=== PATIENT | female | born 1995 | race African-American/Black ===

== ENCOUNTER 2021-03-05 12:15 | Outpatient (REF) | payer OTHER, SELFPAY ==
[2021-03-05 13:11] LABS: COVID-19 Test Negative (Negative)
== END 2021-03-05 12:16 | disposition home or self-care (01) ==
LOC: HO.LAB 12:15
PROVIDERS: Visit Provider Internal Medicine
DX: Z20.822 Contact with and (suspected) exposure to COVID-19 (principal)
CPT/HCPCS: 36415; 87635; C9803

== ENCOUNTER 2025-10-17 08:35 | Outpatient (AMB) | payer OTHER, SELFPAY ==
--- NOTE | 2025-10-17 08:38 | A.OFFPC_ITS ---
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 Accompanied by: Self / Same As Patient Allergies No Known Allergies Allergy (Verified 10/17/25 08:41) Medication List - Last Reconciled 10/17/25 by Alpa Floyd MD multivitamin 1 tab PO DAILY Tobacco use date assessed: 10/17/25 Dental Screening Dental Screen Date: 10/17/25 Did you have a dental visit in the last 12 months?: No Did you have a dental problem in the last 6 months where you did not have access to dental care?: No HPI HPI Comments History of Present Illness Details The patient is a 30 year old female presenting to re-establish care and for physical Migraine: The patient reports a recent onset of severe and consistent migraines, which she locates at the top and sometimes back of her head. These headaches typically last for a couple of days and are only partially relieved by hmam-wai-vhncazk medications like ibuprofen or Tylenol. There is no specific pattern to their onset, and she experienced them on two separate days in the past week. Denies any snoring or apneas Asthma: The patient has a history of asthma, which has become more exacerbated lately, prompting her to carry her inhaler with her. She does not smoke cigarettes but does smoke marijuana recreationally, which may be a contributing factor. Anxiety and Depression: The patient reports using marijuana recreationally for anxiety and depression. Recent screening scores include a CAMERON-7 of 6, indicating mild anxiety, and a PHQ-9 of 5, indicating mild depression. She is currently seeking a therapist to address these issues. The patient's mother about three years ago, and she finds the holidays to be a difficult time. Carpal Tunnel Syndrome: The patient reports numbness in her right hand that began in the summer, around Deanne or May. The numbness affects all fingers, is accompanied by wrist pain, and has worsened this year. 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 Health Maintenance: The patient is re-establishing care, having not seen a provider since 2022. Her immunizations are up-to-date through her employer. She has not had a recent gynecological exam and her last eye exam was in 2022, after which she did not fill her prescription for glasses despite reporting worsening vision. She reports taking a multivitamin and oil of oregano. [facility] Medical History (Updated 10/17/25 @ 17:38 by Alpa Floyd MD) Routine adult health maintenance Thyromegaly Impaired fasting glucose Routine gynecological examination Migraine Depression Unspecified asthma Family History (Updated 10/17/25 @ 08:15 by Alpa Floyd MD) Other Congestive heart failure Coronary artery disease Diabetes mellitus Hypothyroidism Unspecified asthma Social History Housing: House Patient Tobacco Use Status: Never used Tobacco e-Cigarette/Vaping Use: Never Used service: No Current occupational status: employed Questionnaire PHQ-9 Over the last 2 weeks, how often have you been bothered by any of the following problems? 1. Little interest or pleasure in doing things: not at all 2. Feeling down, depressed, or hopeless: several days 3. Trouble falling or staying asleep, or sleeping too much: several days 4. Feeling tired or having little energy: several days 5. Poor appetite or overeating: several days 6. Feeling bad about yourself - or that you are a failure or have let yourself or your family down: not at all 7. Trouble concentrating on things, such as reading the newspaper or watching television: several days 8. Moving or speaking so slowly that other people could have noticed. Or the opposite - being so fidgety or restless that you have been moving around a lot more than usual: not at all 9. Thoughts that you would be better off or of hurting yourself in some way: not at all Total score: 5 Depression Screening Interpretation: Positive Depression Screening Follow-up: Other (pt researching therapy options) Depression Screening Done: Yes 76585 - PHQ-9 Billing: Yes Source: Developed by Drs. Baltazar Hayward, Celeste Olivares, Randy Chavez and colleagues, with an educational emiliano from [employer]. Thrive Questionnaire Date Thrive assessed: 10/17/25 I am a: Patient What is your living situation today?: I choose not to answer this question Within the past 12 months, did the food you bought not last and you didn't have the money to get more?: I choose not to answer this question Within the past 12 months, did you worry whether your food would run out before you got money to buy more?: I choose not to answer this question Do you have trouble paying for medicines?: No Do you have trouble getting transportation to medical appointments?: No Do you have trouble paying your heating and electricity bill?: I choose not to answer this question Do you have trouble taking care of your child, family member or friend?: I choose not to answer this question Do you have trouble with day-to-day activities such as bathing, preparing meals, shopping, managing finances, etc.?: No Are you currently unemployed and looking for a job?: No Are you interested in more education?: I choose not to answer this question Please select the resources that you would like help with: None Currently or been in a relationship where the following occur: No concerns reported THRIVE Score: 0 AUDIT C Alcohol Use Questionnaire (AUDIT-C) 1. How often do you have a drink containing alcohol?: Monthly or less 2. How many drinks containing alcohol do you have on a typical day when you are drinking?: 1 or 2 3. How often do you have six or more drinks on one occasion?: Never Total Score: 1 CAMERON-7 AMB Questionnaire CAMERON-7 Date CAMERON - 7 assessed: 10/17/25 Feeling nervous, anxious, or on edge: 1 = Several days Not being able to stop or control worryin = Several days Worrying too much about different things: 1 = Several days Trouble relaxin = Several days Being so restless that it is hard to sit still: 1 = Several days Becoming easily annoyed or irritable: 1 = Several days Feeling afraid as if something awful might happen: 0 = Not at all Total CAMERON-7 score (0-4 normal; 5-9 mild; 10-14 moderate; 15-21 severe): 6 Source: Developed by Drs. Baltazar Hayward, Celeste Olivares, Randy Chavez and colleagues, with an educational emiliano from [employer]. Review of Systems Narrative Review of Systems - General: Reports feeling very fatigued. - Denies feeling excessively sleepy. - HEENT: Reports worsening eyesight. - Denies snoring. - Respiratory: Reports recent exacerbation of asthma symptoms. - Denies waking up gasping for air. - GI: Reports normal bowel movements - Neurological: Reports recent onset of severe, consistent migraines located at the top and back of her head. - Reports numbness in the right hand involving all fingers. - Reports pain in the left hand without numbness. - Musculoskeletal: Reports right wrist pain. - Psychiatric: Reports symptoms of anxiety and depression. . Physical exam (Primary Care) Vital Signs: Last Vital Signs Temp 96.9 F 10/17/25 08:40 Pulse 84 10/17/25 08:40 Resp 16 10/17/25 08:40 BP 110/70 10/17/25 08:40 BMI result Body Mass Index 55.4 Tobacco/Smoking Status: Tobacco use Status Tobacco use date assessed 10/17/25 10/17/25 08:46 Patient Tobacco Use Status Never used Tobacco 10/17/25 08:46 e-Cigarette/Vaping Use Never Used 10/17/25 08:46 PHQ-9: PHQ-9 Score PHQ-9: Total score 5 10/17/25 09:00 Depression Screening Interpretation: Positive Depression Screening Follow-up: Other (pt researching therapy options) Thrive Assessment: Date of Thrive Assessment Date Thrive assessed 10/17/25 10/17/25 08:46 Currently or been in a relationship where the following occur: No concerns reported Narrative Physical Exam - HEENT: Ears are clear bilaterally. Oropharynx is clear. - Extraocular movements are intact. - Neck: Thyroid is slightly enlarged (thyromegaly) but non-tender. - Carotids are without bruits. - Respiratory: Lungs clear to auscultation bilaterally. - Cardiovascular: Regular rate and rhythm, with a soft murmur noted. - Abdomen: Soft, non-tender, and non-distended with normal bowel sounds. 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 - Phalen's maneuver is negative. Tinel's sign is positive on the right wrist. - Extremities: No lower extremity edema. Coding Level of Care Code Est Pt Prev Care 18-39y(73518) Add On Preventative Visit Only Diagnoses Migraine without status migrainosus, not intractable, unspecified migraine type G43.909 Migraine type: unspecified Status migrainosus presence: without status migrainosus Intractability: not intractable Thyromegaly E01.0 Routine adult health maintenance Z00.00 Additional Codes PHQ-9 - 25566 - PHQ-9 Billing: Yes ([id number]) Assessment & Plan Assessment & Plan (1) Migraine: Code(s): G43.909 - Migraine, unspecified, not intractable, without status migrainosus Category: Medical Qualifiers: Migraine type: unspecified Status migrainosus presence: without status migrainosus Intractability: not intractable Qualified Code(s): G43.909 - Migraine, unspecified, not intractable, without status migrainosus (2) Thyromegaly: Code(s): E01.0 - Iodine-deficiency related diffuse (endemic) goiter Category: Medical (3) Routine adult health maintenance: Code(s): Z00.00 - Encounter for general adult medical examination without abnormal findings Category: Medical Plan Assessment and Plan 1. Migraine - The patient reports recent, frequent, and severe headaches. - The plan is to initiate migraine prophylaxis with magnesium 400 mg and riboflavin 400 mg daily. - For abortive therapy, a prescription for low-dose sumatriptan will be provided. - The patient is advised to schedule an eye exam to rule out uncorrected refractive error as a contributing factor. 2. Carpal Tunnel Syndrome, Right - The patient reports numbness in the right hand with a positive Tinel's sign on exam. - I will refer her to a hand specialist for further evaluation. - In the interim, she is advised to continue night splinting and request an ergonomic assessment at her workplace. - A prescription for topical lidocaine ointment will be sent to her pharmacy. 3. Thyromegaly - A slightly enlarged thyroid was noted on physical exam. - Lab work will include a TSH, and a thyroid ultrasound will be ordered to further evaluate the thyroid structure. 4. Asthma - The patient reports recent exacerbation of her asthma, possibly related to recreational marijuana smoking. - She has been counseled on smoking cessation 5. Mild Anxiety and Depression - The patient's CAMERON-7 and PHQ-9 scores indicate mild symptoms. - She is actively seeking a therapist, which is encouraged. - Will continue to monitor. 6. Health Maintenance - The patient is re-establishing care. - A comprehensive lab panel including CBC, CMP, and A1c will be drawn today. - A referral will be sent to gynecology for routine care. - The patient will follow up in approximately 3 months to review progress. Plan - Order comprehensive lab panel including CBC, chemistry panel, A1c, and TSH. - Refer patient to gynecology - Advise patient to discontinue smoking marijuana - Prescribe low-dose sumatriptan for abortive treatment of migraines. - Recommend a trial of magnesium 400 mg daily and vitamin B2 (riboflavin) 400 mg daily for migraine prevention. - Advise patient to schedule an eye examination to rule out refractive error contributing to headaches. - Order a thyroid ultrasound to evaluate thyromegaly noted on exam. - Refer patient to a hand specialist - Prescribe a topical lidocaine ointment for symptomatic relief of hand pain. 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 Patient Instructions - Please go to the lab to have your blood drawn today for a full panel of tests. - For your migraines, you can try taking Magnesium 400 mg and Vitamin B2 (Riboflavin) 400 mg once a day to help prevent them. - A prescription for Sumatriptan has been sent to [facility] for when you feel a migraine starting. Orders: Orders Complete Blood Count Auto Diff Today G43.909 - Migraine, unspecified, not intractable, without status migrainosus, R73.01 - Impaired fasting glucose Comprehensive Met. Panel Today G43.909 - Migraine, unspecified, not intractable, without status migrainosus, R73.01 - Impaired fasting glucose Hemoglobin A1c Today G43.909 - Migraine, unspecified, not intractable, without status migrainosus, R73.01 - Impaired fasting glucose TSH reflex Free T4 Today G43.909 - Migraine, unspecified, not intractable, without status migrainosus, R73.01 - Impaired fasting glucose Lipid Panel Today G43.909 - Migraine, unspecified, not intractable, without status migrainosus, R73.01 - Impaired fasting glucose Vitamin D 25-OH Total Today G43.909 - Migraine, unspecified, not intractable, without status migrainosus, R73.01 - Impaired fasting glucose IRON PROFILE Today G43.909 - Migraine, unspecified, not intractable, without status migrainosus, R73.01 - Impaired fasting glucose Vitamin B12 Today G43.909 - Migraine, unspecified, not intractable, without status migrainosus, R73.01 - Impaired fasting glucose Ferritin Today G43.909 - Migraine, unspecified, not intractable, without status migrainosus, R73.01 - Impaired fasting glucose US thyroid Today E01.0 - Iodine-deficiency related diffuse (endemic) goiter Referrals 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
[2025-10-17 08:40] VITALS: BP 110/70; PULSE 84; RESP 16; TEMP 36.1; BMI 55.4
== END 2025-10-17 09:28 | disposition home or self-care (01) ==
LOC: HO.HMCHD 08:35
PROVIDERS: PCP Internal Medicine; Visit Provider Internal Medicine
DX: Z00.00 Encounter for general adult medical examination without abnormal findings (principal); G43.909 Migraine, unspecified, not intractable, without status migrainosus; E01.0 Iodine-deficiency related diffuse (endemic) goiter

== ENCOUNTER → 2025-10-17 08:35 | Outpatient (BNVA) | payer OTHER, SELFPAY | PROVIDERS: PCP Internal Medicine; Visit Provider Internal Medicine | DX: Z00.00 Encounter for general adult medical examination without abnormal findings (principal); G43.909 Migraine, unspecified, not intractable, without status migrainosus; E01.0 Iodine-deficiency related diffuse (endemic) goiter | CPT/HCPCS: 96127 ==

== ENCOUNTER 2025-10-17 09:47 | Outpatient (REF) | payer OTHER, SELFPAY ==
[2025-10-17 10:32] LABS: MANUAL DIFF FLAG NO
[2025-10-17 10:51] LABS: Hematocrit 44.7 % (37.0-47.0); Hemoglobin 14.0 g/dl (12.0-16.0); Imm Gran Abs Auto 0.03 X10*3/uL (0.00-0.03); Imm Gran Pct Auto 0.4 % (0.0-0.4); Lymphocytes Absolute Auto 2.9 X10*3/uL (1.2-4.9); Mean Corpuscular HGB Conc 31.3 g/dl (31.0-35.0); Mean Corpuscular Hemoglobin 25.2 pg (27.0-33.0); Mean Corpuscular Volume 80.5 fL (80.0-98.0); NRBC Abs Auto 0.000 X10*3/uL (0.0-0.012); NRBC Pct Auto 0.0 /100WBC (0.0-0.2); Platelet Count 372 X10*3/uL (160-400); Red Blood Count 5.55 X10*6/uL (4.20-5.50); White Blood Count 6.8 X10*3/uL (4.8-10.8)
[2025-10-17 14:09] LABS: Vitamin B12 861 pg/mL (200-900)
[2025-10-17 14:16] LABS: Ferritin 246 ng/mL (10-122)
[2025-10-17 14:36] LABS: Alanine Aminotransferase 22 U/L (0-31); Albumin Level 4.2 g/dL (3.5-5.0); Alkaline Phosphatase 99 U/L (39-117); Anion Gap 16 (12-20); Aspartate Amino Transferase 22 U/L (5-31); Blood Urea Nitrogen 17 mg/dL (9-16); Calcium 9.3 mg/dL (8.4-10.2); Carbon Dioxide 21 mmol/L (22-29); Chloride 107 mmol/L (96-108); Cholesterol 248 mg/dL (<200); Estimated Glomerular Filt Rate > 60; HDL Cholesterol 43 mg/dL (>40); Iron 43 mcg/dL (30-160); Percent Iron Saturation 15 % (15-50); Potassium 4.9 mmol/L (3.3-5.1); Sodium 139 mmol/L (135-145); Total Iron Binding Capacity 296 mcg/dL (228-428); Total Protein 7.6 g/dL (6.5-8.0); Triglycerides 137 mg/dL (<150); Unsaturated Iron Binding 253 ug/dL
[2025-10-17 14:59] LABS: Free T4 (Free Thyroxine) 0.88 ng/dL (0.71-1.85)
== END 2025-10-17 09:48 ==
LOC: HO.10HDL 09:47
PROVIDERS: Visit Provider Internal Medicine
DX: R73.01 Impaired fasting glucose (principal); G43.909 Migraine, unspecified, not intractable, without status migrainosus; Z13.0 Encounter for screening for diseases of the blood and blood-forming organs and certain disorders involving the immune mechanism; Z13.29 Encounter for screening for other suspected endocrine disorder; Z13.6 Encounter for screening for cardiovascular disorders; Z13.21 Encounter for screening for nutritional disorder
CPT/HCPCS: 36415; 80053; 80061; 82306; 82607; 82728; 83036; 83540; 84439; 84443; 85025

== ENCOUNTER 2025-10-31 09:59 | Outpatient (REF) | payer OTHER, SELFPAY ==
--- NOTE | ~2025-10-31 | US_ITS ---
EXAMINATION: US THYROID HISTORY: E01.0 - Iodine-deficiency related diffuse (endemic) goiter TECHNIQUE: Real-time grayscale ultrasound imaging was performed and images were reviewed. COMPARISON: There are no prior studies available for comparison. FINDINGS: SIZE: The right thyroid lobe measures 3.9 x 1.5 x 1.7 cm. The left thyroid lobe measures 5.3 x 2.7 x 3.3 cm. The isthmus measures 9 mm. FLOW: Flow to the gland is normal. ECHOGENICITY: The echotexture of the gland is normal on the right and heterogeneous on the left. NODULES: There are thyroid nodules noted as described below: Nodule #: 1 Location: Right isthmus measuring 1.5 x 1.0 x 1.6 cm. Shape: Wider than tall (0 points) Margins: Smooth (0 points) Echotexture: Hyperechoic (1 point) Composition: Solid (2 points) Calcifications: None (0 points) Total points: 3 TIRADS: TR3: Mildly suspicious. Nodule #: 2 Location: Left mid to lower pole measuring 3.7 x 2.7 x 3.0 cm. Shape: Wider than tall (0 points) Margins: Smooth (0 points) Echotexture: Isoechoic (1 point) Composition: Solid (2 points) Calcifications: Comet tail (0 points) Total points: 3 TIRADS: TR3: Mildly suspicious. US/US thyroid IMPRESSION: Dominant mildly suspicious nodule at the lower pole of the left thyroid lobe. According to ACR TI-RADS guidelines below, ultrasound-guided fine-needle aspiration is recommended. ACR TI-RADS Guidelines TR1 (0 points): Benign. No follow-up or biopsy required TR2 (2 points): Not Suspicious. No biopsy or follow up indicated TR3 (3 points): Mildly Suspicious. FNA if >= 2.5 cm, Follow if >= 1.5 cm TR4 (4-6 points): Moderately Suspicious. FNA if >= 1.5 cm, Follow if >= 1.0 cm TR5 (>=7 points): Highly Suspicious. FNA if >= 1.0 cm, Follow if >= 0.5 cm Electronically signed by: Baltazar Prieto MD 10/31/2025 11:17 AM EST
== END 2025-10-31 10:00 | disposition home or self-care (01) ==
LOC: HO.US 09:59
PROVIDERS: PCP Internal Medicine; Visit Provider Internal Medicine
DX: E01.0 Iodine-deficiency related diffuse (endemic) goiter (principal)
CPT/HCPCS: 76536

== ENCOUNTER → 2025-10-31 10:01 | Outpatient (BNV) | payer OTHER, SELFPAY | PROVIDERS: PCP Internal Medicine; Visit Provider Radiology Diagnostic Radiology | DX: E01.0 Iodine-deficiency related diffuse (endemic) goiter (principal) | CPT/HCPCS: 76536 ==